=== PATIENT | female | born 1960 | race Asian ===

== ENCOUNTER 2021-12-08 09:36 | Emergency (ER) | payer OTHER ==
[~2021-12-08] VITALS: Ht 160 cm; Wt 59.0 kg
[2021-12-08 09:54] VITALS: BP 168/83
[2021-12-08] MEDS ORDERED: ACET-1080 PO (10:42)
== END 2021-12-08 10:48 | disposition home or self-care (01) ==
LOC: ER 09:36 → EDBD 09:36 → ER 10:48
DX: S00.83XA Contusion of other part of head, initial encounter (principal); S16.1XXA Strain of muscle, fascia and tendon at neck level, initial encounter; I10 Essential (primary) hypertension; E11.9 Type 2 diabetes mellitus without complications; E78.5 Hyperlipidemia, unspecified; F17.210 Nicotine dependence, cigarettes, uncomplicated; V43.52XA Car driver injured in collision with other type car in traffic accident, initial encounter; Y93.89 Activity, other specified; Y92.89 Other specified places as the place of occurrence of the external cause; Y99.8 Other external cause status
CPT/HCPCS: 70110; 72040

== ENCOUNTER 2024-12-01 23:45 | Emergency (ER) | payer OTHER ==
[~2024-12-01] VITALS: Ht 157.5 cm; Wt 55.8 kg
[~2024-12-01 23:45] MED LIST: ACET-1080 PO
[2024-12-02] VITALS: TEMP 97.7
[2024-12-02] MEDS: cloNIDine HCL 0.1 MG TAB PO ONE (00:20)
--- NOTE | 2024-12-02 00:22 | DVH ---
EXAM: XY L SHOULDER 2+ VIEW XRAY HISTORY: pain and bruising COMPARISON: None TECHNIQUE: Four views of the left shoulder were performed. FINDINGS: No acute fracture or dislocation are identified about the left shoulder. No significant degenerative changes or loss of subacromial space. IMPRESSION: Unremarkable radiographs of the left shoulder.
[2024-12-02] MEDS ORDERED: ACET500T58 PO (00:50)
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
[2024-12-02 01:06] VITALS: BP 128/63; PULSE 78; RESP 18; O2SAT 98
== END 2024-12-02 01:07 | disposition home or self-care (01) ==
LOC: ER 23:45
DX: S40.012A Contusion of left shoulder, initial encounter (principal); I10 Essential (primary) hypertension; E11.9 Type 2 diabetes mellitus without complications; F17.210 Nicotine dependence, cigarettes, uncomplicated; E78.5 Hyperlipidemia, unspecified; Y00.XXXA Assault by blunt object, initial encounter; Y93.89 Activity, other specified; Y92.89 Other specified places as the place of occurrence of the external cause; Y99.8 Other external cause status
CPT/HCPCS: 73030